=== PATIENT | female | born 1990 | race Hispanic/Latino ===

== ENCOUNTER 2019-05-26 07:45 | Outpatient (CLI) | payer BC ==
--- NOTE | 2019-05-26 09:22 | ULT ---
US Abdominal: 05/26/2019 12:00 AM CLINICAL HISTORY: Abdominal bloating and left abdominal pain. STUDY: Complete abdominal ultrasound COMPARISON: None. FINDINGS: Liver: Size: Normal. Echogenicity: Hyperechoic consistent with hepatic steatosis. Contour: Smooth. Mass: None. Common bile duct: 4 mm Gallbladder: Normal. Pancreas: Not visualized Inferior vena cava: Normal in caliber Aorta: Normal in caliber Spleen: There is a questionable mass in the spleen measuring 4.4 cm in size. Spleen measuring 10.7 cm in length. Right kidney: No pelvicalyceal dilatation. Right kidney measuring 12.2 cm in length. Left kidney: No pelvicalyceal dilatation. Right kidney measuring 11.6 cm in length. IMPRESSION: 1. Fatty liver 2. Questionable splenic mass. A CT of the abdomen is recommended for further evaluation
--- NOTE | 2019-05-26 10:01 | ULT ---
Exam: Pelvic ultrasound including Transabdominal, Transvaginal, And Vascular Duplex with color and spectral Doppler imaging: HISTORY: Pelvic pain COMPARISON: None FINDINGS: The uterus is 9.5 x 4.2 x 5.7 cm Endometrial thickness:Thickened echogenic endometrium at 1.3 cm Right ovary:2.1 x 2.7 x 2.4 cm Left ovary:2.5 x 3.6 x 2.2 cm No abscess or significant abnormal fluid collection. Vascular duplex examination demonstrates no evidence for ovarian torsion IMPRESSION: No significant acute process within the pelvis
== END 2019-05-26 07:46 | disposition home or self-care (01) ==
LOC: BICULT 07:45
PROVIDERS: ATTEND Family Medicine
DX: R10.2 Pelvic and perineal pain (principal); R10.84 Generalized abdominal pain; R14.0 Abdominal distension (gaseous); K76.0 Fatty (change of) liver, not elsewhere classified
CPT/HCPCS: 76700; 76856

== ENCOUNTER 2019-08-12 08:00 | Outpatient (CLI) | payer BC ==
[2019-08-12 08:39] LABS: BHCG - Serum Negative (NEGATIVE); Pregs Control Background? CLEAR/WHITE (CLR/WHITE); Pregs Control Bar Appear? YES (CONTROL BAR)
[2019-08-12] MEDS ORDERED: Gadobenate Dimeglumine 529 MG/1 ML (20ML VIAL) ONE (09:00)
--- NOTE | 2019-08-12 11:55 | MRI ---
MRI ABDOMEN WITH AND WITHOUT IV CONTRAST: HISTORY: Splenic mass. FINDINGS: There is a 6 x 4.7 x 5.3 cm mass in the spleen which demonstrates heterogeneous low S signal intensit y on T1 and T2 weighted images with early peripheral enhancement progressing centripetally in a radia l pattern on delayed images. Since this does not definitely demonstrate hyperintensity on T2 images, it is unlikely to represent a typical splenic hemangioma. The liver, gallbladder, pancreas, adrenal glands, and kidneys appear normal. No free fluid or lympha denopathy is seen in the abdomen. The bone marrow signal is normal. IMPRESSION: A 6 cm splenic mass. Possibilities include atypical hemangioma, sclerosing angiomatoid nodular transf ormation, lymphoma, littoral cell angioma, etc. Evaluation with PET scan and 6 month follow up MRI w ould be helpful. POS: [facility]
== END 2019-08-12 08:01 | disposition home or self-care (01) ==
LOC: SCSMRI 08:00
PROVIDERS: ATTEND Family Medicine
DX: R16.1 Splenomegaly, not elsewhere classified (principal)
CPT/HCPCS: 74183; 84703; A9577